=== PATIENT | male | born 1945 | race Caucasian/White ===

== ENCOUNTER → 2024-04-06 | Outpatient (CLI) | payer MEDICARE ==
--- NOTE | 2024-05-03 09:08 | MR ---
Aron Bautista Ordering Physician: Unknown, Unknown ID: [id number] Phone, Pager: Phone: N/A Pager: N/A : 1945 Age/Gender: 78Y, M Primary Location: N/A Procedure: MRI LUMBAR WO CONTRAST Study Date: 04/06/2024 5:14:17 AM EXAMINATION TYPE: MR lumbar spine wo con DATE OF EXAM: 04/06/2024 COMPARISON: No comparison available on downtime PACS. HISTORY: Low back pain extending to right leg CONTRAST: 0 mL intravenous Gadavist. TECHNIQUE: Multiplanar, multisequence images of the lumbar spine were acquired. FINDINGS: L5-S1: No significant disc bulge or disc herniation. No spinal canal stenosis. No foraminal stenosi s. Facet degenerative changes are present.. L4-L5: Mild disc bulge has anterior thecal sac contact. No AP spinal canal stenosis is present. Facet degenerative changes are present. Moderate to severe bilateral foraminal stenosis present. L3-L4: No significant disc bulge or disc herniation. No spinal canal stenosis. No foraminal stenosi s. Mild facet degenerative changes are present L2-L3: No significant disc bulge or disc herniation. No spinal canal stenosis. No foraminal stenosi s. L1-L2: No significant disc bulge or disc herniation. No spinal canal stenosis. No foraminal stenosi s. T12-L1: No significant disc bulge or disc herniation. No spinal canal stenosis. No foraminal stenos is. IMPRESSION: 1. Disc bulge with anterior thecal sac flattening L4-5. No spinal canal stenosis. 2. Moderate to severe bilateral foraminal stenosis L4-5. 3. Facet degenerative changes L5-S1.
--- NOTE | 2024-05-03 09:08 | MR ---
Patient: Aron Bautista Ordering Physician: Unknown, Unknown ID: [id number] Phone, Pager: Phone: N /A Pager: N/A : 1945 Age/Gender: 78Y, M Primary Location: N/A Procedure: MRI PROSTAT W/WO CO NTRAST Study Date: 04/06/2024 5:41:06 AM EXAMINATION TYPE: MR Prostate wo/w con DATE OF EXAM: 04/09/2024 11:42 AM COMPARISON: None. CLINICAL INDICATION: Elevated PSA TECHNIQUE: Multi-planar, multi-sequence imaging of the pelvis is performed prior to and following the uncomplicated administration of bolus intravenous gadolinium. CONTRAST: 10 cc Gadavist Interpretive Criteria: PI-RADS v2.1 SERUM PSA: 5.01 02/04/2024 SURGICAL PATHOLOGY: No data available. FINDINGS: Prostatic dimensions: 5.2 x 5.7 x 4.5 cm. Ellipsoid Volume:69.84 (PSA density=0.07 ng/mL/mL) CENTRAL GLAND (Central and Transition Zones/CZ+TZ): Multiple bilateral, heterogenous appearing hypertrophic stromal nodules, without suspicious lesion. M edian lobe hypertrophy with protrusion into the base of the bladder. (PI-RADS 2) PERIPHERAL ZONE (PZ): Bilateral linear, indistinct wedgelike areas of low ADC, and low T2 signal, No evidence of masslike a bnormality, or localized perfusional hypervascularity, to further suggest a focus of clinically signi ficant prostate cancer. (PI-RADS 2) SEMINAL VESICLES (SV): Symmetric and unremarkable. PERIPROSTATIC TISSUES: Unremarkable. LYMPH NODES: No enlarged pelvic lymph node. REMAINING PELVIS: Bladder wall is within normal limits given distention. No abnormal free or organized intrapelvic fluid collection. No pathologic bowel dilation or mural thickening. No hernia visualized OSSEOUS STRUCTURES: No suspicious osseous abnormality. IMPRESSION: 1. No specific features for high-risk prostate cancer. Maximum PI-RADS score: 2. 2. Moderate BPH, estimated gland volume 69.84 mL. 3. No suspicious osseous lesion. No lymphadenopathy. No evidence of prostate adenocarcinoma involving the periprostatic tissues.
== END | disposition home or self-care (01) ==
LOC: RADMRIMAIN 05:44
PROVIDERS: ATTEND Family Medicine
DX: N40.0 Benign prostatic hyperplasia without lower urinary tract symptoms (principal); M51.36 Other intervertebral disc degeneration, lumbar region; M47.817 Spondylosis without myelopathy or radiculopathy, lumbosacral region; M99.73 Connective tissue and disc stenosis of intervertebral foramina of lumbar region
CPT/HCPCS: 72148; 72197; A9585

== ENCOUNTER → 2024-06-09 | Outpatient (CLI) | payer MEDICARE ==
--- NOTE | 2024-06-09 12:48 | CT ---
CT left knee-[facility] protocol. History: Osteoarthritis of the knee. Comparison: None. Technique: Multiple axial images were obtained of the bilateral lower extremities from the inferior p bonnie through the ankles. FINDINGS: There is mild joint space narrowing of the hips bilaterally consistent with mild osteoarthritis. There is moderate narrowing of the medial compartment of the left knee with mild subchondral sclerosi s consistent with moderate osteoarthritis. The lateral and patellofemoral compartments are well prese rved. No joint effusion. There is no fracture or focal intraosseous abnormality. There is a 7 mm ossicle in the posterior medial compartment. There is a 2 to 3 mm calcific density in the anterior medial compartment. The ankle mortise sees are symmetric and well preserved. There are a few subchondral cysts in the lef t lateral talus. IMPRESSION: 1. Mild osteoarthritis of the hips bilaterally. 2. Moderate osteoarthritis medial compartment left knee with medial compartment intra-articular loose bodies. 3. Unremarkable ankles [facility], , 06/09/2024 12:46 PM
== END | disposition home or self-care (01) ==
LOC: RADCTMAIN 10:40
PROVIDERS: ATTEND Orthopaedic Surgery
DX: M17.12 Unilateral primary osteoarthritis, left knee

== ENCOUNTER → 2024-06-13 | Outpatient (CLI) | payer MEDICARE ==
[2024-06-13 17:37] LABS: Partial Thromboplastin Time 27.2 sec (22.0-30.0); Prothrombin Time 10.9 sec (10.0-12.5)
[2024-06-14 02:50] LABS: HCT 41.5 % (39.6-50.0); HGB 13.5 g/dL (13.0-17.0); MCH 31.9 pg (27.0-32.0); MCHC 32.5 g/dL (32.0-37.0); MCV 98.1 FL (80.0-97.0); Mean Platelet Volume 9.5 FL (9.5-12.2); NRBC Per 100 WBC 0 X 10*3/uL (0.00-0.01); Platelet Count 246 X 10*3/uL (140-440); RBC 4.23 X 10*6/uL (4.40-5.60); RDW 13.1 % (11.5-14.5); WBC 7.12 X 10*3/uL (4.50-10.00)
[2024-06-14 03:27] LABS: BUN/Creat Ratio 26.38 Ratio (12.00-20.00); Blood Urea Nitrogen 21.1 mg/dL (9.0-27.0); Chloride 104 mmol/L (96-109); Glucose 78 mg/dL (70-110); Potassium 5.3 mmol/L (3.5-5.5); Sodium 142 mmol/L (135-145)
[2024-06-14 03:28] LABS: ALT 17 U/L (10-49); AST 23 U/L (14-35); Albumin 4.2 g/dL (3.8-4.9); Alkaline Phosphatase 73 U/L (41-126); Calcium 9.4 mg/dL (8.7-10.3); Carbon Dioxide 27.1 mmol/L (21.6-31.8); Total Bilirubin 0.2 mg/dL (0.3-1.2); Total Protein 6.2 g/dL (6.2-8.2)
== END | disposition home or self-care (01) ==
LOC: LABPAT 15:16
PROVIDERS: ATTEND Orthopaedic Surgery
CPT/HCPCS: 80053; 83036; 85027; 85610; 85730; 87070

== ENCOUNTER 2024-06-17 08:43 | Day surgery (SDC) | payer MEDICARE ==
[~2024-06-17 08:43] MED LIST: HYDROmorphone 0.5 MG/0.5 ML SYRINGE IVP PRN; TRANEXAMIC 1,000 MG/100ML-NACL 1,000 MG in SALINE 1 100ML.BAG IV PRN; TRANEXAMIC 1,000 MG/100ML-NACL 1,000 MG in SALINE 1 100ML.BAG IVPB PRN
[2024-06-17] MEDS: IV FLUID CONTINUATION 1,000 ML IV ONE ×2 (09:10→14:13)
[2024-06-17] MEDS: ACETAMINOPHEN TAB 500 MG TAB PO PRN (09:38)
[2024-06-17] MEDS: DOCUSATE 100 MG CAP PO PRN (09:38)
[2024-06-17] MEDS: oxyCODONE ER 10 MG TAB.ER.12H PO PRN (09:39)
[2024-06-17] MEDS: LACTATED RINGERS 1,000 ML IV SCH (09:39)
[2024-06-17] MEDS: MIDAZOLAM 2 MG/2 ML VIAL IV PRN (09:41)
[2024-06-17] MEDS: FAMOTIDINE 20 MG/2 ML VIAL IVP PRN (09:57)
[2024-06-17] MEDS: ONDANSETRON 4 MG/2 ML VIAL IVP PRN (09:57)
[2024-06-17] MEDS: KETOROLAC 15 MG/ML 1 ML VIAL IVP PRN (09:57)
[2024-06-17] MEDS: DEXAMETHASONE SOD PHOSPHATE 10 MG/ML 1 ML VIAL IV PRN (09:58)
--- NOTE | 2024-06-17 10:05 | P.ANPRN ---
Procedure Note - Anesthesia - Nerve Block Performed Left Kasandrack Single Time Out Performed: Yes Date of Procedure: 06/17/24 Procedure Start Time: 09:41 Procedure Stop Time: 09:46 Location of Patient: PreOp Indication: Acute Post-Operative Pain, Analgesia, Requested by Surgeon Sedation Type: Sedate with meaningful contact maintained Preparation: Sterile Prep Position: Right Lateral Catheter: None Needle Types: Pajunk Needle Gauge: 21 Ultrasound used to visualize needle placement: Yes Ultrasound used to observe medication spread: Yes Injectate: 0.5% Ropivacaine (see comment for volume) (Ropiv 20ml+Decadron 4mg.) Blood Aspirated: No Pain Paresthesia on Injection Noted: No Resistance on Injection: Normal Image Stored and Saved: Yes Events: Uneventful and Well Tolerated
--- NOTE | 2024-06-17 10:07 | P.ANPRN ---
Procedure Note - Anesthesia - Nerve Block Performed Left Adductor Canal Single Time Out Performed: Yes Date of Procedure: 06/17/24 Procedure Start Time: 09:46 Procedure Stop Time: 09:51 Location of Patient: PreOp Indication: Acute Post-Operative Pain, Analgesia, Requested by Surgeon Sedation Type: Sedate with meaningful contact maintained Preparation: Sterile Prep Position: Supine Catheter: None Needle Types: Pajunk Needle Gauge: 21 Ultrasound used to visualize needle placement: Yes Ultrasound used to observe medication spread: Yes Injectate: 0.5% Ropivacaine (see comment for volume) (Ropiv 15ml+Decadron 4mg.) Blood Aspirated: No Pain Paresthesia on Injection Noted: No Resistance on Injection: Normal Image Stored and Saved: Yes Events: Uneventful and Well Tolerated
[2024-06-17] MEDS ORDERED: DEXAMETHASONE SOD PHOSPHATE 4 MG/ML 1 ML VIAL ONE (10:14)
[2024-06-17] MEDS ORDERED: SUCCINYLCHOLINE CHLORIDE 200 MG/10 ML VIAL IV ONE (10:14)
[2024-06-17] MEDS ORDERED: PROPOFOL 10 MG/ML 20 ML VIAL IV ONE (10:14)
[2024-06-17] MEDS ORDERED: LIDOCAINE 1% INJ 10MG/ML (20 ML MDV) ONE (10:14)
[2024-06-17] MEDS ORDERED: TRANEXAMIC 1,000 MG/100ML-NACL PREMIX BAG ONE (10:14)
[2024-06-17] MEDS ORDERED: GLYCOPYRROLATE 0.2 MG/ML 2 ML VIAL ONE (10:14)
[2024-06-17] MEDS ORDERED: ROCURONIUM 10 MG/ML (5 ML VIAL) IV ONE (10:14)
[2024-06-17] MEDS ORDERED: NEOSTIGMINE 1 MG/ML 10 ML VIAL ONE (10:14)
[2024-06-17] MEDS ORDERED: HYDROmorphone (PF) 1 MG/ML ONE (10:14)
[2024-06-17] MEDS ORDERED: fentaNYL (PF) 50 MCG/ML 2 ML AMP ONE (10:14)
[2024-06-17] MEDS ORDERED: MIDAZOLAM 2 MG/2 ML VIAL ONE (10:14)
[2024-06-17] MEDS ORDERED: ePHEDrine 50 MG/ML 1 ML VIAL ONE (10:14)
[2024-06-17] MEDS ORDERED: ROPIVACAINE 5 MG/ML 30 ML VIAL ONE (10:14)
[2024-06-17] MEDS: ROPIVACAINE/EPI/CLONIDINE/KET 50 ML SYRINGE MISCELLANE PRN (10:44)
[2024-06-17] MEDS: LACTATED RINGERS 1,000 ML IV ONE (11:41)
[2024-06-17] MEDS ORDERED: NA PHOS,M-B/NA PHOS,DI-BA 133 ML ENEMA RECTAL PRN (12:02)
[2024-06-17] MEDS ORDERED: HYDROmorphone 0.5 MG/0.5 ML SYRINGE IVP PRN (12:02)
[2024-06-17] MEDS ORDERED: HYDROcodone/APAP 5-325MG 1 EACH TAB PO PRN (12:02)
[2024-06-17] MEDS ORDERED: MAGNESIUM HYDROXIDE 2,400 MG/30 ML CUP PO PRN (12:02)
[2024-06-17] MEDS ORDERED: hydrOXYzine pamoate 25 MG CAP PO PRN (12:02)
[2024-06-17] MEDS ORDERED: bisacodyL 10 MG SUPP RECTAL PRN (12:02)
[2024-06-17] MEDS ORDERED: ONDANSETRON 4 MG/2 ML VIAL IVP PRN (12:02)
[2024-06-17] MEDS ORDERED: NALOXONE 0.4 MG/ML 1 ML VIAL IV PRN (12:02)
--- NOTE | 2024-06-17 12:02 | P.OP ---
Date of Procedure: 06/17/24 Preoperative Diagnosis: Severe left knee osteoarthritis Postoperative Diagnosis: Same Procedure(s) Performed: 1. Left total knee arthroplasty 2. Computer assisted musculoskeletal navigation using CT/MRI images Implants: 1. Oliver Triathlon CR Femur Size #5 2. [place] Triathlon [place] Tibial Base Size #6 with 12 x 50 stem due to poor bone quality 3. [place] Triathlon CS poly Size #9 4. Oliver Triathlon all poly patella, Size #35 Anesthesia: IVÁN, regional Surgeon: Yoni Kilpatrick Asphalt Worker #1: Lenny Vazquez Estimated Blood Loss (ml): 200 IV fluids (ml): 800 Pathology: none sent Condition: stable Disposition: PACU Indications for Procedure: I met with the patient preoperatively in the office setting and discussed treatment of their symptomatic knee arthritis. They failed a long course of nonsurgical treatment and elected to proceed with an elective total knee replacement. I discussed the potential risks and complications at length and gave them ample time to ask questions. Risks discussed included: risks from anesthesia, superficial site surgical infection, acute and/or chronic periprosthetic joint infection, delayed wound healing, drainage, wound necrosis, instability, stiffness, stiffness requiring manipulation and/or revision surgery, damage to local blood vessels or nerves, aseptic loosening of the implants, extensor mechanism issues including disruption, patellar maltracking, avascular necrosis etc., continued or worsened knee pain, generalized dissatisfaction with surgical outcome, need for revision surgery, an inability to regain preinjury level of function, DVT, PE, other medical complications, and possibly loss of life or limb. The patient voiced their understanding that while these are the most common complications other less common complications ar e possible. They provided both their verbal and written consent to go forward with surgery. Operative Findings: Severe medial and patellofemoral compartment osteoarthritis Description of Procedure: The patient was identified in preoperative holding and the correct operative extremity was verified and marked with a marker. I reviewed the consent form with the patient at length. All of their questions were answered. The patient was given a block by anesthesia. They were then brought back to the operating room. They were transferred onto the operating room table where a general anesthetic, preoperative antibiotics, and tranexamic acid were administered by anesthesia. A tourniquet was applied to the proximal aspect of the operative extremity. The contralateral extremity was padded under the heel and secured to the operating room table with a nonsterile blue towel and tape. The ipsilateral arm was carefully draped across the patient's chest and secured with a pillow and foam. A post was applied over the lateral aspect of the ipsilateral thigh and a bolster was placed under the ipsilateral foot. I verified that the operative extremity was stable and the knee was flexed to 90. The operative extremity was then placed in a leg becker, nonsterile drapes were applied, and the extremity was prepped and draped sterilely in the standard sterile fashion. Prior to starting surgery timeout was performed identifying the correct patient, operative extremity, and procedure. The leg was then elevated, exsanguinated with an Esmarch bandage, and the tourniquet was inflated. An anterior midline incision was made sharply with a scalpel. Once I had dissected deep to the superficial fascial layer medial and lateral flaps were el evated. A medial parapatellar arthrotomy was created. Upon opening the knee joint there were diffuse arthritic changes in all 3 compartments. The anterior horn of the medial meniscus were sharply released and a medial release was performed around the posterior medial corner of the knee to facilitate retractor placement. The fat pad was excised with electrocautery. The patella was found to be severely arthritic and a provisional cut was made with a sagittal saw to facilitate mobilization of the extensor mechanism during the procedure. Remnants of the ACL and PCL were then excised from the notch. 4 mm pins were then placed within the incision in the medial distal femur and proximal tibia. Arrays were applied to the pins and I verified they were completely tightened. The knee was then registered with the Patterns robot and manipulations in implant position were made to balance the knee and opitmize implant position. Using the Cristóbal robotic saw all cuts were made in accordance with our plan. After all bony fragments had been removed the cuts were verified with the planar probe. The tibia was then subluxed forward and sized. The knee was brought into flexion and a lamina bit gatherer was placed to allow removal of the meniscal remnants both medially and laterally as well as posterior osteophytes. Local anesthetic was then infiltrated around the joint capsule. Trial implants were then placed within the knee. Range of motion and collateral ligament tension was then evaluated. Adjustments in implant size and position were then made accordingly. Once the knee was felt to be appropriately balanced the Cristóbal pins were removed. The patella was then recut, sized, and punched. A trial patellar button was then placed. With the trial components in place, the patella tracked midline. The femur was then drilled and the trial component removed. The trial tibial component was then appropriately rotated, pinned, and prepared for the keel. All trial components were then removed from the knee. The knee was thoroughly irrigated with pulsatile lavage. Cement was prepared via vacuum mixing in a bowl on the back table. I then hand pressurized cement into the femur and tibia and placed the implants beginning with the tibial base tray and poly liner, femoral component, and finally the patellar button. All extruded cement was removed including from the pin sites. Once the cement had hardened the knee was evaluated one final time with the final polyethylene liner in place. The knee had full extension and flexion and felt stable to varus and valgus stress throughout the arc of motion. The tourniquet was released and with the tourniquet down the patella tracked midline. All bleeders were controlled with electrocautery. The knee was then soaked for 3 minutes with a dilute Betadine soak. The knee was thoroughly irrigated using 3 L of sterile saline and pulsatile lavage. The extensor mechanism was then reapproximated using pop off Vicryl sutures followed by a running barbed suture. The knee was then closed in layers with a 0 strata fix for the deep fascial layer, 2-0 strata fix for the superficial subcutaneous layer and Monocryl and Steri-Strips for the skin. A sterile dressing was applied. I verified that all instrument, sponge, and sharp counts were correct. The patient was then transferred off the operating room table, extubated, and brought to recovery having tolerated the procedure well. Lenny Vazquez PA-C was required as a skilled diver assistant for patient positioning, draping, exposure, retraction, closure of wound and application of dressing PLAN: The patient can weight-bear as tolerated on the operative extremity. DVT prophylaxis with aspirin 81 mg twice a day based on preoperative risk stratification. Internal medicine for perioperative medical management. 2 doses of post-operative antibiotics. Physical therapy for gait training. Follow-up in the office in 2 weeks for wound check and x-rays of the knee including an AP and lateral.
--- NOTE | 2024-06-17 13:38 | XR ---
EXAMINATION TYPE: XR knee limited LT DATE OF EXAM: 06/17/2024 12:53 PM COMPARISON: None CLINICAL INDICATION: Male, 79 years old with history of Evaluation for Postop abnormality and alignme nt; [facility] TECHNIQUE: XR knee limited LT views submitted. FINDINGS: Status post total knee arthroplasty changes with hardware in appropriate alignment and in tact. No evidence of fracture. Subcutaneous lucencies and lucencies within the joint consistent with surgical changes. IMPRESSION: Status post total knee arthroplasty changes with hardware intact and appropriate alignment. No fractu res identified. [facility], , 06/17/2024 1:36 PM
[2024-06-17] MEDS: SODIUM CHLORIDE 0.9% 1,000 ML IV SCH (15:12)
[2024-06-17] MEDS: ASPIRIN 81 MG PO SCH (20:19)
[2024-06-17] MEDS: SENNOSIDES-DOCUSATE SODIUM 1 EACH TAB PO SCH (20:19)
[2024-06-17] MEDS: HYDROcodone/APAP 10-325MG 1 EACH TAB PO PRN (22:53)
[2024-06-18] MEDS: HYDROmorphone 0.5 MG/0.5 ML SYRINGE IVP PRN (02:04)
--- NOTE | 2024-06-18 08:34 | P.DS ---
Providers Date of admission: 06/17/2024 Attending physician: Yoni Kilpatrick Consults: 06/17/24 12:02 Consult Physician Routine Consulting Provider: Keo Macias Consult Reason/Comments: post op medical management Do you want consulting provider notified?: Yes Primary care physician: Ruth Bakerbagh [facility] Course: the patient is a very pleasant 79-year-old male who underwent an uncomplicated total knee replacement yesterday. Following surgery he was transferred to the orthopedic floor. He received 2 doses of postoperative antibiotics. He was started on aspirin for DVT prophylaxis. He was seen on postoperative day #1 and was doing well. There is minimal swelling in the knee. His dressing was intact. Femoral nerve function was intact. He was able to actively plantarflex and dorsiflex his ankle and his toes. He worked with physical therapy and did well. He was seen by internal medicine. He ultimately was cleared for discharge home on postoperative day #1. Patient Condition at Discharge: Good Plan - Discharge Summary Discharge Rx Participant: No New Discharge Prescriptions: New Docusate [Colace] 100 mg PO BID #60 capsule Doxycycline Monohydrate 100 mg PO BID #30 cap Aspirin 81 mg PO BID #60 tab HYDROcodone/APAP 5-325MG [Castleton 5-325] 1 - 2 tab PO Q6HR PRN #56 tab PRN Reason: Pain Omeprazole [PriLOSEC] 40 mg PO DAILY #30 cap Celecoxib [CeleBREX] 200 mg PO BID #60 cap No Action FLUoxetine HCL 20 mg PO DAILY Discharge Medication List FLUoxetine HCL 20 mg PO DAILY 06/14/24 [History] Aspirin 81 mg PO BID #60 tab 06/17/24 [Rx] Celecoxib [CeleBREX] 200 mg PO BID #60 cap 06/17/24 [Rx] Docusate [Colace] 100 mg PO BID #60 capsule 06/17/24 [Rx] Doxycycline Monohydrate 100 mg PO BID #30 cap 06/17/24 [Rx] HYDROcodone/APAP 5-325MG [Castleton 5-325] 1 - 2 tab PO Q6HR PRN #56 tab 06/17/24 [Rx] Omeprazole [PriLOSEC] 40 mg PO DAILY #30 cap 06/17/24 [Rx] Follow up Appointment(s)/Referral(s): Yoni Kilpatrick MD [Medical Doctor] - 2 Weeks Patient Instructions/Handouts: Joint Replacement Surgery (DC) Activity/Diet/Wound Care/Special Instructions: 1. Weight-bear as tolerated on your operative extremity unless instructed o therwise. Use a walker or other assistive device to ambulate. 2. Leave surgical dressing in place. If your dressing becomes saturated with blood, there is drainage, or the dressing becomes loose please contact the office. 3. It is okay to shower with your surgical dressing, but do not submerge in water (no hot tubs, bath's, swimming etc.) 4. Make sure to take her blood clot prevention medication as prescribed (aspirin, Eliquis, Xarelto, and Plavix are commonly prescribed medications for blood clot prevention) 5. While taking Castleton or Percocet for pain make sure you're taking a stool sof tener (Colace) and drink lots of water. 6. Keep all follow-up appointments as scheduled. You will usually be seen in 1-2 weeks following surgery. 7. Please contact the office with any questions or concerns [phone] Discharge Disposition: HOME WITH HOME HEALTH SERVICES
[2024-06-18 09:08] LABS: Basophils # (A) 0.03 X 10*3/uL (0.00-0.10); Basophils % (A) 0.2 %; Eosinophils # (A) 0.01 X 10*3/uL (0.04-0.35); Eosinophils % (A) 0.1 %; HCT 32.5 % (39.6-50.0); HGB 10.5 g/dL (13.0-17.0); Lymphocytes # (A) 0.94 X 10*3/uL (0.90-5.00); Lymphocytes % (A) 7.1 %; MCH 31.8 pg (27.0-32.0); MCHC 32.3 g/dL (32.0-37.0); MCV 98.5 FL (80.0-97.0); Mean Platelet Volume 9.5 FL (9.5-12.2); Monocytes # (A) 0.94 X 10*3/uL (0.20-1.00); Monocytes % (A) 7.1 %; NRBC Per 100 WBC 0 X 10*3/uL (0.00-0.01); Neutrophils # (A) 11.25 X 10*3/uL (1.80-7.70); Neutrophils % (A) 85.3 %; Platelet Count 186 X 10*3/uL (140-440)
[2024-06-18 09:14] VITALS: BP 110/63; PULSE 72; RESP 18; TEMP 98.5
[2024-06-18] MEDS ORDERED: MULTIVITAMINS, THERA 1 EACH TAB PO SCH (12:00)
== END 2024-06-18 09:40 | disposition home health service (06) ==
LOC: OR 08:43 → 4SSUR 12:13 → OR 06-18 09:40
PROVIDERS: ATTEND Orthopaedic Surgery
DX: M17.12 Unilateral primary osteoarthritis, left knee (principal); Z87.891 Personal history of nicotine dependence; Z79.899 Other long term (current) drug therapy
CPT/HCPCS: 0055T; 27447; 64447; 64999; 85025